=== PATIENT | female | born 1975 ===

== ENCOUNTER → 2021-03-01 | Outpatient (CLI) | payer OTHER | END | disposition home or self-care (01) | LOC: CT 08:58 | DX: M79.89 Other specified soft tissue disorders (principal); M54.2 Cervicalgia | CPT/HCPCS: 70490 ==

== ENCOUNTER → 2021-03-29 | Outpatient (CLI) | payer OTHER | END | disposition home or self-care (01) | LOC: CT 12:55 | DX: L02.11 Cutaneous abscess of neck (principal) | CPT/HCPCS: 70490 ==

== ENCOUNTER → 2021-04-27 | Outpatient (CLI) | payer OTHER ==
[2021-04-27 10:48] LABS: Potassium 4.1 mmol/L (3.5-5.1)
[2021-04-27 10:52] LABS: BUN/Creatinine Ratio 22.2; Calcium 8.9 mg/dL (8.5-10.1)
== END | disposition home or self-care (01) ==
LOC: EDUNIT# 04-04 09:00 → CT 08:53
DX: N83.201 Unspecified ovarian cyst, right side (principal); E11.9 Type 2 diabetes mellitus without complications; F41.9 Anxiety disorder, unspecified; K21.00 Gastro-esophageal reflux disease with esophagitis, without bleeding; Z20.822 Contact with and (suspected) exposure to COVID-19
CPT/HCPCS: 36415; 80048